=== PATIENT | female | born 1945 | race Caucasian/White ===

== ENCOUNTER 2025-05-13 15:57 | Emergency (ER) | payer OTHER, BC ==
[2025-05-13 16:13] LABS: Absolute Lymphocytes (CBC) 1.4 K/uL (0.7-4.9); Hematocrit 37.9 % (36.0-45.0); Hemoglobin 12.8 g/dL (12.0-15.0); MCH 30.2 pg (27.0-35.0); MCHC 33.9 g/dL (32.0-36.0); MCV 89.0 fL (80-100); MPV 8.4 fL (7.6-11.3); Nucleated RBC Absolute Count 0.0 (0-0); Nucleated Red Blood Cells % 0.1 % (0-0); RBC Red Blood Cell Count 4.25 M/uL (3.86-4.86); White Blood Count 5.30 thou/uL (4.3-10.9)
[2025-05-13 16:33] LABS: ALT/SGPT 46.0 U/L (13-56); AST/SGOT 31.0 U/L (15-37); Albumin 2.9 g/dL (3.4-5.0); Albumin/Globulin Ratio 0.9 (1.1-1.8); Alkaline Phosphatase 128.0 U/L (45-117); Anion Gap 7.0 mEq/L (5.0-15.0); BUN Blood Urea Nitrogen 13.0 mg/dL (7-18); Bilirubin Indirect, Calculated 0.5 mg/dL (0.2-0.8); Globulin 3.3 g/dL (2.3-3.5); Glucose Level 156.0 mg/dL (74-106); Magnesium 1.9 mg/dL (1.6-2.4); Potassium 4.0 mEq/L (3.5-5.1)
[2025-05-13 16:37] LABS: Sqamous Epithelial <5 /HPF (None Seen); Urine Culture Reflex Order REFLEXED; Urine Microscopic Reflex YN ORDER UMIC
--- NOTE | 2025-05-13 17:31 | RAD REPORT ---
EXAM: CT brain without contrast HISTORY: Confusion COMPARISON: April 24, 2025 TECHNIQUE: Multiple contiguous axial images were obtained and a CT of the brain without contrast.. Sagittal and coronal reconstruction performed. Automated exposure control, adjustment of the mA and/or kV according to patient size, and/or iterative reconstruction. Unless otherwise specified, incidental f indings do not require dedicated imaging follow-up FINDINGS: An intracranial bleed is not seen Ventricles are normal caliber No extra-axial fluid collection noted Marked low-density paraventricular, deep and subcortical white matter probably ischemic changes secon boom to small vessel disease. No fluid within the visualized sinuses or mastoids noted. IMPRESSION: No acute intracranial abnormality noted. If the patient continues to have symptoms to suggest an acute intracranial abnormality then MRI of th e brain would be recommended.
--- NOTE | 2025-05-13 18:10 | RAD REPORT ---
EXAM: Chest Abdomen Pelvis W Cont CLINICAL INDICATION: Chest and abdominal pain TECHNIQUE: CT chest, abdomen and pelvis was performed, with 100 cc Isovue-300 IV contrast, as per de partment protocol. Axial, sagittal and coronal reconstructions were obtained. One or more of the following dose reduction techniques were used: Automated exposure control, adjustment of the mA and/o r kV according to the patient size, and/or iterative reconstruction. Unless otherwise specified, incidental findings do not require dedicated imaging follow-up. [id number]. Oral contrast not given. This limits evaluation of the bowel. COMPARISON: April 23, 2025 CT chest FINDINGS: Lungs are clear. No mediastinal or hilar lymphadenopathy. No pleural effusion.. No pericardial effusion Cholecystectomy. Prominence of the biliary tree probably physiologic Liver, spleen, pancreas, adrenals, and left kidney unremarkable. Simple cyst right kidney 6 cm. Additional subcentimeter right renal cyst. Hysterectomy. No adnexal mass. There is no evidence of diverticulitis. Small umbilical hernia IMPRESSION: No acute abnormality displayed
--- NOTE | 2025-05-13 18:26 | ER ---
Nurse's Notes [facility] Name: Alma Rosa Hill Age: 79 yrs Sex: Female : 1945 Arrival Date: 05/13/2025 Time: 15:47 Bed 4 Private MD: Diagnosis: UTI/ Urinary tract infection, site not specified;Nausea with vomiting, unspecified Presentation: 05/13 15:39 Chief complaint: Patient states: Toned out for nausea/vomiting. Coronavirus screen: At jl this time, the client does not indicate any symptoms associated with coronavirus-19. Ebola Screen: No symptoms or risks identified at this time. 15:39 Method Of Arrival: EMS: [facility] 7 15:39 Initial Sepsis Screen: Does the patient meet any 2 criteria? No. Patient's initial jl7 sepsis screen is negative. Does the patient have a suspected source of infection? No. Patient's initial sepsis screen is negative. Risk Assessment: Do you want to hurt yourself or someone else? Patient reports no desire to harm self or others. Onset of symptoms was May 13, 2025. Care prior to arrival: Medication(s) given: zofran 4 mg, IV initiated. 20 GA, in the right antecubital area. 15:39 Acuity: RUSS 3 jl7 Triage Assessment: 15:50 General: Appears in no apparent distress. uncomfortable, Behavior is calm, cooperative, jl7 appropriate for age. Pain: Denies pain. Neuro: Melissa Agitation-Sedation Scale (RASS): 0 - Alert and Calm Level of Consciousness is awake, alert, obeys commands, Oriented to person, place, situation. Cardiovascular: Patient's skin is warm and dry. Respiratory: Airway is patent Respiratory effort is even, unlabored, Respiratory pattern is regular, symmetrical. GI: Reports nausea, vomiting, Patient currently denies diarrhea. Historical: - Allergies: 15:50 Codeine; jl7 15:50 PENICILLINS; jl7 15:50 Rocephin; jl7 15:50 Sulfa (Sulfonamide Antibiotics); jl7 15:50 TETRACYCLINES; jl7 - PMHx: 15:50 Gastroesophageal reflux disease; History of urinary tract infection; jl7 Hypercholesterolemia; Hypertensive disorder; Cerebrovascular accident; Dementia; - Immunization history:: Adult Immunizations unknown. - Infectious Disease History:: Denies. - Social history:: Smoking status: Patient denies any tobacco usage or history of. Screenin:31 [facility] ED Fall Risk Assessment (Adult) History of falling in the last 3 months, jl7 including since admission No falls in past 3 months (0 pts) Confusion or Disorientation Yes (5 pts) Intoxicated or Sedated Yes (3 pts) Impaired Gait No (0 pts) Mobility Assist Device Used Yes (1 pt) Altered Elimination Yes (1 pt) Score/Fall Risk Level 3 or more points = High Risk Oriented to surroundings, Maintained a safe environment, Hourly rounding (assess needs \T\ fall precautionary measures) done, Utilized family, sitter, or virtual bar and filler assembler as indicated. Abuse screen: Denies threats or abuse. Denies injuries from another. Nutritional screening: No deficits noted. Tuberculosis screening: No symptoms or risk factors identified. Assessment: 16:31 Reassessment: Patient appears in no apparent distress at this time. No changes from 7 previously documented assessment. Patient and/or family updated on plan of care and expected duration. Pain level reassessed. Daughter at bedside. 17:30 Reassessment: Patient appears in no apparent distress at this time. No changes from jl7 previously documented assessment. Patient and/or family updated on plan of care and expected duration. Pain level reassessed. Patient is alert, oriented x 3, equal unlabored respirations, skin warm/dry/pink. 18:30 Reassessment: Patient appears in no apparent distress at this time. No changes from jl7 previously documented assessment. Patient and/or family updated on plan of care and expected duration. Pain level reassessed. Patient is alert, oriented x 3, equal unlabored respirations, skin warm/dry/pink. Vital Signs: 15:39 BP 135 / 71; Pulse 56; Resp 17 S; Temp 98.5; Pulse Ox 99% ; Weight 92.5 kg; Pain 0/10; jl7 16:22 BP 129 / 52; Pulse 53; Resp 15; Pulse Ox 100% ; jl7 17:03 BP 130 / 56; Pulse 53; Resp 15; Pulse Ox 99% ; jl7 18:26 BP 137 / 64; Pulse 52; Pulse Ox 100% on R/A; af3 15:39 Pain Scale: Adult [facility] ED Course: 15:47 Patient arrived in ED. 7 15:47 Montserrat Mcghee FNP-C is [facility]. kb 15:47 Parth Ortiz MD is Attending Physician. kb 15:50 Triage completed. jl7 15:50 Arm band placed on right wrist. jl7 16:00 Patient has correct armband on for positive identification. Bed in low position. Call jl7 light in reach. Side rails up X2. Provided Education on: use of call colon. Client placed on continuous cardiac and pulse oximetry monitoring. NIBP monitoring applied. hall monitor on. Pulse ox on. Warm blanket given. 16:22 Messi Huerta, RN is Primary Nurse. jl7 16:26 Initial lab(s) drawn, by md, sent to lab. Urine collected: straight cath specimen, jl7 cloudy. Straight cath inserted, using sterile technique, 14 Fr. Specimen obtained. Returned cloudy urine. Patient tolerated well. Maintain EMS IV. Dressing intact. Good blood return noted. Site clean \T\ dry. Gauge \T\ site: 20 left AC. Flushed with 10 mL NS. 16:50 CT Head Brain wo Cont In Process Unspecified. EDMS 17:56 Chest Abdomen Pelvis W Cont In Process Unspecified. EDMS 18:30 No provider procedures requiring assistance completed. IV discontinued, intact, jl7 bleeding controlled, No redness/swelling at site. Pressure dressing applied. Administered Medications: 18:50 Drug: Ciprofloxacin PO 500 mg PO once Route: PO; jl7 18:50 Follow up: Response: Medication administered at discharge. jl7 Medication: 16:31 VIS not applicable for this client. jl7 Outcome: 18:25 Discharge ordered by . kb 18:52 Discharged to home via wheelchair, with family, jl7 18:52 Condition: stable 18:52 Discharge instructions given to patient, family, Instructed on discharge instructions, follow up and referral plans. medication usage, Demonstrated understanding of instructions, follow-up care, medications, Prescriptions given X 2, 18:52 Patient left the ED. jl7 Addendum: 05/20/2025 11:01 Addendum: Culture Results: Positive urine culture. Bacteria is resistant to, has j l7 intermediate sensitivity, or is not tested against prescribed antibiotics. Report given to GA for further evaluation and then to director quality assurance for follow up with patient. Phone call Attempt #1 No answer, left VM. Signatures: Dispatcher [employer] EDMS Montserrat Mcghee FNP-C PR SPECIALIST-Messi Quinn RN RN jl7 Ching Pereira, RN RN af3 Corrections: (The following items were deleted from the chart) 05/13 17:56 16:50 In radiology for Abdomen Pelvis W Con+CT.RAD.BRZ. JAELMT EDMS 18:52 18:52 Discharged to home ambulatory, nya jl7
--- NOTE | 2025-05-13 18:26 | EDPHYS ---
Physician Documentation [facility] Name: Alma Rosa Hill Age: 79 yrs Sex: Female : 1945 Arrival Date: 05/13/2025 Time: 15:47 Bed 4 Private MD: ED Physician Parth Ortiz HPI: 05/13 16:21 This 79 yrs old Female presents to ER via EMS with complaints of Nausea/Vomiting. kb 16:21 Patient is a 79-year-old female presents for nausea and vomiting that started just kb prior to arrival. Patient had 1 episode of vomiting and daughter reported she was incoherent afterwards so she called 911. Patient is awake, alert and oriented at this time. Complained of nausea and route and was given Zofran by EMS.. Historical: - Allergies: 15:50 Codeine; jl7 15:50 PENICILLINS; jl7 15:50 Rocephin; jl7 15:50 Sulfa (Sulfonamide Antibiotics); jl7 15:50 TETRACYCLINES; jl7 - PMHx: 15:50 Gastroesophageal reflux disease; History of urinary tract infection; jl7 Hypercholesterolemia; Hypertensive disorder; Cerebrovascular accident; Dementia; - Immunization history:: Adult Immunizations unknown. - Infectious Disease History:: Denies. - Social history:: Smoking status: Patient denies any tobacco usage or history of. ROS: 16:20 Constitutional: As per HPI kb Exam: 16:20 Constitutional: This is a well developed, well nourished patient who is awake, alert, kb and in no acute distress. Head/Face: Normocephalic, atraumatic. ENT: Moist Mucous membranes Cardiovascular: Regular rate Respiratory: Respirations even and unlabored. No increased work of breathing. Talking in full sentences Skin: Warm, dry with normal turgor. Normal color. MS/ Extremity: Pulses equal, no cyanosis. Neurovascular intact. Full, normal range of motion. Neuro: Awake and alert, GCS 15, oriented to person, place, time, and situation. 16:20 ECG was reviewed by the Attending Physician. 16:20 Abdomen/GI: Inspection: abdomen appears normal, Bowel sounds: normal, Palpation: soft, in all quadrants, mild abdominal tenderness, in the right upper quadrant, 16:28 ENT: External ear(s): are unremarkable, Ear canal(s): are normal, TM's: are normal, kb Vital Signs: 15:39 BP 135 / 71; Pulse 56; Resp 17 S; Temp 98.5; Pulse Ox 99% ; Weight 92.5 kg; Pain 0/10; jl7 16:22 BP 129 / 52; Pulse 53; Resp 15; Pulse Ox 100% ; jl7 17:03 BP 130 / 56; Pulse 53; Resp 15; Pulse Ox 99% ; jl7 18:26 BP 137 / 64; Pulse 52; Pulse Ox 100% on R/A; af3 15:39 Pain Scale: Adult jl7 MDM: 15:47 Medical Screening Exam initiated kb 16:21 Data reviewed: vital signs, nurses notes. Historians other than the Patient: EMS: [facility]. 18:24 Differential diagnosis: Nonspecific abd pain, viral gastroenteritis, pancreatitis, uti, kb dehydration. Consideration of Admission/Observation Escalation of care including admission/observation considered. admission considered but pt prefers to go home, does not want to be admitted at this time. Counseling: I had a detailed discussion with the patient and/or guardian regarding the historical points, exam findings, and any diagnostic results supporting the discharge/admit diagnosis, lab results, radiology results, the need for outpatient follow up, a family practitioner, to return to the emergency department if symptoms worsen or persist or if there are any questions or concerns that arise at home. ED course: Will give Cipro for UTI due to allergies to other antibiotics. 05/13 15:48 Order name: Basic Metabolic Panel; Complete Time: 16:34 kb 05/13 15:48 Order name: CBC with Diff; Complete Time: 16:19 kb 05/13 15:48 Order name: Hepatic Function; Complete Time: 16:34 kb 05/13 15:48 Order name: Magnesium; Complete Time: 16:34 kb 05/13 15:48 Order name: UA Rfx Dheeraj Cult if indicated; Complete Time: 16:38 kb 05/13 16:40 Order name: Urine Culture EDMI 05/13 15:48 Order name: CT Head Brain wo Cont; Complete Time: 17:34 kb 05/13 17:56 Order name: Chest Abdomen Pelvis W Cont; Complete Time: 18:16 EDMI 05/13 15:48 Order name: Cardiac monitoring; Complete Time: 15:49 kb 05/13 15:48 Order name: EKG - Nurse/Tech; Complete Time: 16:26 kb 05/13 15:48 Order name: IV Saline Lock; Complete Time: 15:57 kb 05/13 15:48 Order name: Labs collected and sent; Complete Time: 16:26 kb 05/13 15:48 Order name: NPO; Complete Time: 15:57 kb 05/13 15:48 Order name: O2 Per Protocol; Complete Time: 15:49 kb 05/13 15:48 Order name: O2 Sat Monitoring; Complete Time: 15:49 kb EC:20 Rate is 58 beats/min. Rhythm is regular. QRS Laona is Normal. AL interval is normal at kb 190 msec. QRS interval is normal at 84 msec. QT interval is normal at 435 msec. Administered Medications: 18:50 Drug: Ciprofloxacin PO 500 mg PO once Route: PO; jl7 18:50 Follow up: Response: Medication administered at discharge. jl7 Disposition Summary: 05/13/25 18:25 Discharge Ordered Notes: Location: Home kb Condition: Stable kb Diagnosis - UTI/ Urinary tract infection, site not specified kb - Nausea with vomiting, unspecified kb Followup: kb - With: Private Physician - When: 2 - 3 days - Reason: Recheck today's complaints, Continuance of care, Re-evaluation by your physician Followup: kb - With: Emergency Department - When: As needed - Reason: Worsening of condition Discharge Instructions: - Discharge Summary Sheet kb - Nausea and Vomiting, Adult, [id number] kb - Urinary Tract Infection, Adult, [id number] kb Forms: - Medication Reconciliation Form kb - Antibiotic Education kb - Prescription Opioid Use kb - Patient Portal Instructions kb - Leadership Thank You Letter Prescriptions: - ondansetron 4 mg Oral Tablet,disintegrating - take 1 tablet ORAL route every 6 hours as needed for nausea and vomiting; 12 kb tablet; Refills: 0, Product Selection Permitted - Cipro 500 mg Oral Tablet - take 1 tablet ORAL route every 12 hours for 7 days; 14 tablet; Refills: 0, kb Product Selection Permitted - Macrobid 100 mg Oral Capsule - take 1 capsule ORAL route every 12 hours for 10 days; 20 capsule; Refills: 0, dr5 Product Selection Permitted Signatures: Dispatcher [employer] EDMontserrat Man FNP-C FNP-Ckb Leal, Jahala, RN RN jl7 Corrections: (The following items were deleted from the chart) 17:56 15:58 Abdomen Pelvis W Con+CT.RAD.BRZ ordered. EDMS EDMS
[2025-05-13] MEDS ORDERED: CIPROFLOXACIN HCL 500 MG TAB ONE (18:32)
[2025-05-13 19:04] VITALS: BP 137/64; O2SAT 100
== END 2025-05-13 18:52 | disposition home or self-care (01) ==
LOC: ER 15:57
DX: N39.0 Urinary tract infection, site not specified (principal); Z87.440 Personal history of urinary (tract) infections
CPT/HCPCS: 93005; 87088; 85025; 81001; 87086; 80048; 36415; 83735; 80076; 87077; 87186; 70450; 71260; 74177; 51702; 99285; Q9967 ×2